=== PATIENT | male | born 1935 | race Native Hawaiian/Other Pacific Islander ===

== ENCOUNTER 2020-05-27 12:07 | Emergency (ER) | payer OTHER ==
[~2020-05-27] VITALS: Ht 175.3 cm; Wt 99.8 kg
[2020-05-27 12:38] LABS: PLATELET COUNT 176 K/uL (142-355)
[2020-05-27 12:44] LABS: POTASSIUM 4.2 mmol/L (3.6-5.2)
[2020-05-27 14:00] VITALS: BP 140/73; TEMP 99.4
[2020-05-27] MEDS ORDERED: DOCU100C10 PO (14:14)
[2020-05-27] MEDS ORDERED: EUTHYROX75 MCG PO (14:16)
[2020-05-27] MEDS ORDERED: LISI10TA11 PO (14:17)
[2020-05-27] MEDS ORDERED: SERTRALINE HYDR25 MG PO (14:18)
[2020-05-27] MEDS ORDERED: ELIQUIS5 MG PO (14:19)
[2020-05-27] MEDS ORDERED: INSU100P SC (14:26)
[2020-05-27] MEDS ORDERED: TYLENOL325 MG PO (14:29)
[2020-05-27] MEDS ORDERED: ACETAMINOPHEN PO (14:31)
[2020-05-27] MEDS ORDERED: [UNRECOGNIZED DRUG - OTHER] PO (14:38)
[2020-05-27] MEDS ORDERED: BISA10SU8 RE (14:43)
[2020-05-27] MEDS ORDERED: BISACODYL5 M1 PO (14:47)
[2020-05-27] MEDS ORDERED: [UNRECOGNIZED DRUG - OTHER] OPTH (14:51)
[2020-05-27] MEDS ORDERED: NITR0.4S2 SL (14:54)
== END 2020-05-27 14:00 | disposition other institution (70) ==
LOC: ED 12:07
PROVIDERS: Family Medicine
DX: R46.89 Other symptoms and signs involving appearance and behavior (principal); Z11.59 Encounter for screening for other viral diseases; I10 Essential (primary) hypertension; Z04.6 Encounter for general psychiatric examination, requested by authority
CPT/HCPCS: 36415; 80053; 81000; 85027; 87635; 93005; 99283; 99285; U0003